=== PATIENT | male | born 1995 | race Caucasian/White ===

== ENCOUNTER 2016-11-07 18:06 | Emergency (ER) | payer SELFPAY ==
[2016-11-07 18:35] VITALS: BP 139/82
--- NOTE | 2016-11-07 18:50 | ERNOTE ---
Dizziness ER Record Presenting Symptoms: dizziness Time Seen by Provider: 11/07/16 18:38 Source: patient Exam Limitations: no limitations Immunizations: IMMUNIZATION HX Immunizations Up to Date Yes History of Influenza Vaccine No Hx Pneumococcal Vaccination No Allergies/Adverse Reactions: Allergies Allergy/AdvReac Type Severity Reaction Status Date / Time No Known Drug Allergies Allergy Verified 11/07/16 18:34 Home Medications: HOME MEDICATIONS Meclizine HCl 25 mg PO TID 5 Days #30 tablet 11/07/16 [Last Taken Unknown] - History of Present Illness Narrative: pt complains of dizziness and sensation that room is spinning. He has had this one other time and was diagnosed with Vertigo. He first felt this way yesterday. He has not gone to work Review of Systems - Review of Systems Constitutional: Present: no symptoms reported EYE: Present: no symptoms reported ENT: Present: no symptoms reported Respiratory: Present: no symptoms reported Cardiology: Present: no symptoms reported Gastrointestinal/Abdominal: Present: no symptoms reported Genitourinary: Present: no symptoms reported Neurological: Present: See HPI, dizziness/light-headedness. Absent: anxiety, depressed - Patient's Past Medical History Patient History - Medical: Other Patient History - Cardiac/Respiratory: No pertinent hx Patient History - Cancer: No Hx of Cancer Patient History - Surgical Procedures: No surgical history Patient History - Other: None - Social History Living Situations: home Psych History: No pertinent hx Smoking Status: Never smoker Alcohol Use: occasionally Drug Use: none - Immunizations Immunizations Up to Date: Yes Hx Pneumococcal Vaccination: No History of Influenza Vaccine: No Physical Exam - Physical Exam General Appearance: Present: wd/wn, alert, no apparent distress Head Exam: Present: normal inspection, no evidence of injury Eye Exam: Normal inspection: bilateral, PERRL: bilateral, EOMI: bilateral Ears, Nose, Throat: Present: normal ENT inspection Neck: Present: normal inspection, nontender, supple Respiratory: Present: no respiratory distress, normal breath sounds, no accessory muscle use, chest nontender, lungs clear Cardiovascular/Chest: Present: regular rate, rhythm, no murmur, normal peripheral pulses Extremity Exam: Present: normal inspection, normal range of motion Neurological Exam: Present: alert, oriented, normal mood/affect, no motor/ sensory deficits ED Progress - Vital Signs Patient's Vital Signs:: I have reviewed the patient's vital signs. Vital Signs: Vital Signs 11/07/16 18:30 Temperature 36.5 C Pulse Rate 72 Respiratory 18 Rate Blood Pressure 139/82 O2 Sat by Pulse 100 Oximetry - Progress/Reassessment Chief Complaint: Dizziness Plan - Plan Plan: This patient appears to have Vertigo Departure Clinical Impression: Benign positional vertigo Qualifiers: Laterality: unspecified laterality Qualified Code(s): H81.10 - Benign paroxysmal vertigo, unspecified ear - Departure Disposition: Home self-care Condition: Good Instructions: Vertigo, [id number] Additional Instructions: follow up with your PCP as needed Prescriptions: Meclizine HCl 25 mg PO TID 5 Days #30 tablet
== END 2016-11-07 19:18 | disposition home or self-care (01) ==
LOC: ER 18:06
DX: H81.10 Benign paroxysmal vertigo, unspecified ear (principal)